=== PATIENT | female | born 1980 | race Caucasian/White ===

== ENCOUNTER 2022-04-22 08:32 | Outpatient (CLI) | payer BC | END 2022-04-22 08:33 | disposition home or self-care (01) | LOC: CSHMAMMO 08:32 | PROVIDERS: ATTEND Obstetrics & Gynecology | DX: Z12.31 Encounter for screening mammogram for malignant neoplasm of breast (principal); N64.89 Other specified disorders of breast | CPT/HCPCS: 77063; 77067 ==

== ENCOUNTER 2023-09-02 09:04 | Outpatient (CLI) | payer BC | END 2023-09-02 09:05 | disposition home or self-care (01) | LOC: CSHMAMMO 09:04 | PROVIDERS: ATTEND Internal Medicine | DX: Z12.31 Encounter for screening mammogram for malignant neoplasm of breast (principal) | CPT/HCPCS: 77063; 77067 ==